=== PATIENT | male | born 2000 | race Caucasian/White ===

== ENCOUNTER 2021-02-26 18:43 | Emergency (ER) | payer OTHER, BC ==
--- NOTE | 2021-02-26 20:22 | EDM.PDOC ---
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 Apparently today at a football game he dislocated his left elbow and the goodwill representative reduced it on the field. He was placed in a sling and then when they returned home from the game today, he went to get changed and he took his arm out of the sling. He let his left arm hang down and the elbow again became dislocated. Treatments CHECK PROCESSING CLERK: Reports: Cold Therapy, NSAIDS Left Elbow Pain Score (Numeric/FACES): 8 Social & Family History - Family History Family Medical History: No Pertinent Family History - Tobacco Use Tobacco Use Status *Q: Never Tobacco User Second Hand Smoke Exposure: No - Recreational Drug Use Recreational Drug Use: No Review of Systems - Review of Systems Review Of Systems: See Below Constitutional: Reports: No Symptoms Eyes: Reports: No Symptoms Ears: Reports: No Symptoms Nose: Reports: No Symptoms Mouth/Throat: Reports: No Symptoms Respiratory: Reports: No Symptoms Cardiovascular: Reports: No Symptoms GI/Abdominal: Reports: No Symptoms Genitourinary: Reports: No Symptoms Musculoskeletal: Reports: Joint Pain (left elbow pain) Skin: Reports: No Symptoms Neurological: Reports: No Symptoms Psychiatric: Reports: No Symptoms ED EXAM, GENERAL - Physical Exam Exam: See Below Exam Limited By: No Limitations General Appearance: Alert, WD/WN, No Apparent Distress (adoelscent male, sitting quietly in ER exam room.) Head: Atraumatic, Normocephalic Respiratory/Chest: No Respiratory Distress GI/Abdominal: Normal Bowel Sounds (Male) Exam: Deferred Rectal (Males) Exam: Deferred Back Exam: Normal Inspection Extremities: Other (Left elbow is mildly deformed and painful with any movement. CMS normal to left upper extremity.) Neurological: Alert, Oriented, CN II-XII Intact, Normal Cognition Psychiatric: Normal Affect Skin Exam: Warm, Dry, Intact, Normal Color Course - Vital Signs Text/Narrative:: 1927 The patient was seen by the INTERIOR DESIGN PROFESSIONAL. Xray was ordered. Patient was offered pain meds, but he declined need for anything. 2020 Xray reviewed, note posterior left elbow fx. Pain meds offered prior to reduction attempt, but pt declined. Left elbow manipulated with extension, supination, and flexion and the joint seemed to return back into place. Patient comfortable with arm at 90 degree angle and placed against his chest in sling. Postreduction xray obtained and notes good alignment of the left elbow joint. Radiology report of first xray noted avulsion type fx off the left olecranon prior to reduction. Discussed findings with the patient and his personal coach. He has an Ortho appt already set up for Sunday by his Refractive Surgeon from [facility]. He was advised to stay in the sling until seen by Ortho. Discharge instructions were reviewed. His questions were answered. He left the ER in stable condition. Last Recorded V/S: Last Vital Signs Temp 37.7 C 02/26/21 19:05 Pulse 86 02/26/21 19:05 Resp 12 02/26/21 19:05 BP 140/72 02/26/21 19:05 Pulse Ox 96 02/26/21 19:05 - Orders/Labs/Meds Orders: Active Orders 24 hr Category Date Time Status Elbow 2V Lt [CR] Stat Exams 02/26/21 20:16 Taken - Radiology Interpretation Free Text/Narrative:: XR Left Elbow 2V=note posterior left dislocation XR Left Elbow Postreduction-dislocation reduced Departure - Departure Time of Disposition: 21:07 Disposition: Home, Self-Care 01 Condition: Good Clinical Impression: Sports injury Traumatic posterior dislocation of elbow Qualifiers: Encounter type: initial encounter Laterality: left Qualified Code(s): S53.125A - Posterior dislocation of left ulnohumeral joint, initial encounter Closed olecranon process fracture Qualifiers: Encounter type: initial encounter Laterality: left Qualified Code(s): S52.022A - Displaced fracture of olecranon process without intraarticular extension of left ulna, initial encounter for closed fracture - Discharge Information *PRESCRIPTION DRUG MONITORING PROGRAM REVIEWED*: No *COPY OF PRESCRIPTION DRUG MONITORING REPORT IN PATIENT VALERIE: No Instructions: How To Use a Sling, [id number], Elbow Dislocation With Rehab- Sports[facility], Olecranon Fracture Referrals: Aniya Guzmán DO [Primary Care Provider] - Forms: ED Department Discharge Sepsis Event Note (ED) - Evaluation Sepsis Screening Result: No Definite Risk - Focused Exam Vital Signs: Vital Signs Temp Pulse Resp BP Pulse Ox 02/26/21 19:05 37.7 C 86 12 140/72 96 - My Orders Last 24 Hours: My Active Orders 02/26/21 20:16 Elbow 2V Lt [CR] Stat - Assessment/Plan Last 24 Hours: My Active Orders 02/26/21 20:16 Elbow 2V Lt [CR] Stat Assessment:: 1)Posterior Left Elbow Dislocation 2)Left Olecranon Fx-Avulsion Type 3)Sports Injury Plan: -Ibuprofen 400mg oral every 6 hours as needed -Acetaminophen 325mg 2-3 tablets oral every 4-6 hours as needed for pain -Apply ice as able -Keep your left arm in a sling at all times until you are seen by the Orthopedic physician. -Rest as needed. No sports participation until cleared by Ortho. -Follow with your [facility]geon at the [facility] for more questions -Keep the previously scheduled appt that you have with Ortho on Sunday -Return to the ER as needed for any concerns
--- NOTE | 2021-02-26 20:30 | CR ---
[id number] RAD/RAD Elbow Left 2V EXAM: RAD Elbow Left 2V INDICATION: DISLOCATION TODAY. COMPARISON: None. DISCUSSION: There is posterior dislocation of the ulna with a small associated distracted fracture off of the tip of the olecranon process. No other fracture is identified. IMPRESSION: 1. Posterior elbow dislocation with small fracture off the tip of the olecranon process. Demario Kim MD 02/26/[id number] Thank you for allowing us to participate in the care of your patient.
--- NOTE | 2021-02-27 08:36 | CR ---
[id number] RAD/RAD Elbow Left 2V EXAM: RAD Elbow Left 2V INDICATION: POST REDUCTION. COMPARISON: Earlier same date. DISCUSSION: Successful reduction of an elbow dislocation. A small fracture off the tip of the olecranon process is again noted. An elbow joint effusion is suspected, but not optimally seen. IMPRESSION: 1. Successful reduction of an elbow dislocation. Demario Kim MD 02/27/21 0835 Thank you for allowing us to participate in the care of your patient.
== END 2021-02-26 21:14 | disposition home or self-care (01) ==
LOC: VM.ED 18:43
DX: S52.022A Displaced fracture of olecranon process without intraarticular extension of left ulna, initial encounter for closed fracture (principal); S53.125A Posterior dislocation of left ulnohumeral joint, initial encounter; X58.XXXA Exposure to other specified factors, initial encounter; Y93.61 Activity, american tackle football
CPT/HCPCS: 24600; 73070-LT; 99283-25; 99284

== ENCOUNTER 2022-05-09 13:00 | Emergency (ER) | payer OTHER | END 2022-05-09 15:59 | disposition home or self-care (01) | LOC: VM.ED 13:00 | DX: S02.40FA Zygomatic fracture, left side, initial encounter for closed fracture (principal); W20.8XXA Other cause of strike by thrown, projected or falling object, initial encounter | CPT/HCPCS: 70450; 70486; 99283; 99284 ==